=== PATIENT | male | born 1995 | race Caucasian/White ===

== ENCOUNTER 2022-01-19 04:14 | Emergency (ER) | payer MEDICARE, OTHER, SELFPAY ==
[2022-01-19] VITALS (8 sets, daily range): BP systolic 119–157; BP diastolic 50–91; PULSE 54–84; RESP 16–17; TEMP 36.8; O2SAT 94–98; BMI 26.6
--- NOTE | 2022-01-19 04:23 | CT_ITS ---
PROCEDURE INFORMATION: Exam: CT Abdomen And Pelvis With Contrast Exam date and time: 01/19/2022 4:37 AM Age: 26 years old Clinical indication: Abdominal pain; Localized; Right upper quadrant (ruq); Additional info: Ruq pain TECHNIQUE: Imaging protocol: Computed tomography of the abdomen and pelvis with contrast. Radiation optimization: All CT scans at this facility use at least one of these dose optimization techniques: automated exposure control; mA and/or kV adjustment per patient size (includes targeted exams where dose is matched to clinical indication); or iterative reconstruction. Contrast material: ISOVUE; Contrast volume: 75 ml; Contrast route: IV; COMPARISON: No relevant prior studies available. FINDINGS: Lungs: Calcified granuloma in the right lower lobe. Mediastinal space: Fluid is seen within the distal thoracic esophagus. Liver: Normal. No mass. Gallbladder and bile ducts: Normal. No calcified stones. No ductal dilation. Pancreas: Normal. No ductal dilation. Spleen: Normal. No splenomegaly. Adrenal glands: Normal. No mass. Kidneys and ureters: Normal. No hydronephrosis. Stomach and bowel: Unremarkable. No obstruction. No mucosal thickening. Appendix: No evidence of appendicitis. Intraperitoneal space: Unremarkable. No free air. No significant fluid collection. Vasculature: Unremarkable. No abdominal aortic aneurysm. Lymph nodes: Unremarkable. No enlarged lymph nodes. Urinary bladder: Unremarkable as visualized. Reproductive: Unremarkable as visualized. Bones/joints: Unremarkable. No acute fracture. Soft tissues: Unremarkable. IMPRESSION: No acute findings.
[2022-01-19 04:33] LABS: Basophils # 0.2 K/mm3 (0-0.2); Basophils % 2.2 % (0.1-2.0); Eosinophils # 0.1 K/mm3 (0.0-0.4); Eosinophils % 1.3 % (0.1-12.0); Hemoglobin 16.9 g/dL (14.1-18.0); Lymphocytes # 2.3 K/mm3 (0.7-4.5); Lymphocytes % 24.8 % (10-50); Mean Corpuscular HGB Conc 34.5 g/dL (31.8-35.4); Mean Platelet Volume 7.8 fl (7.4-10.4); Monocytes # 0.6 K/mm3 (0.1-1.0); Monocytes % 6.1 % (1.7-9.3); Neutrophils # 6.2 K/mm3 (1.8-7.8); Neutrophils % 65.6 % (37.0-80.0); Platelet Count 283 K/mm3 (142-424); Red Blood Count 5.63 M/mm3 (4.60-6.20); Red Cell Distribution Width 12.9 % (11.5-17.5); White Blood Count 9.4 K/mm3 (4.8-10.8)
[2022-01-19 04:40] LABS: Alanine Aminotransferase 203 U/L (12-78); Albumin Level 4.6 g/dl (3.5-5.0); Albumin/Globulin Ratio 1.4 (1.1-1.8); Alkaline Phosphatase 116 U/L (38-126); Amylase 92 U/L (30-110); Anion Gap 12.8 mEq/L (5-15); Aspartate Amino Transferase 217 U/L (17-59); Bilirubin,Total 2.2 mg/dl (0.2-1.3); Blood Urea Nitrogen 17 mg/dl (9-20); Carbon Dioxide 33 mmol/L (22.0-30.0); Chloride 98 mmol/L (98-107); Creatinine Clearance Estimated 144 mL/min (50-200); Estimated Glomerular Filt Rate 102 ml/min (>60); GFR (African American) 123 ML/MIN (>60); Globulin 3.4 g/dL (1.3-3.2); Glucose 134 mg/dl (74-100); Lipase 202 U/L (23-300); Potassium 3.8 mmoL/L (3.5-5.1); Sodium 140 mmol/L (136-145)
[2022-01-19 04:45] LABS: C-Reactive Protein 6.6 mg/L (0-4)
[2022-01-19 04:58] LABS: Procalcitonin 0.076 ng/mL (0.0-2.0)
--- NOTE | 2022-01-19 04:59 | PC.NURSE ---
rounded on pt. pt's pain relieved by meds per MAR. pt still unable to give urine sample @ this time
[2022-01-19 05:08] LABS: Erythrocyte Sedimentation Rate 13 mm/hr (0-15)
[2022-01-19 05:58] LABS: Microscopic, Urine URINE MICROSCOPIC (MICROSCOPIC)
--- NOTE | 2022-01-19 05:58 | PC.NURSE ---
pt updated that we are waiting on ct scan results
[2022-01-19 05:59] LABS: Appearance,Urine CLEAR (Clear); Blood, Urine Negative (Negative); Color,Urine AMBER (Yellow); Glucose,Urine (UA) Negative (Negative); Ketones,Urine Negative (Negative); Leukocyte Esterase,Urine Negative (Negative); Nitrate,Urine Negative (Negative); Protein,Urine Negative (Negative); Specific Gravity, Urine <= 1.005 (1.005-1.030)
[2022-01-19 06:01] LABS: Bilirubin,Urine 1+ (Negative)
[2022-01-19 06:16] LABS: Bacteria,Urine Trace /lpf
--- NOTE | 2022-01-19 06:45 | PC.NURSE ---
at updating pt on POC
--- NOTE | 2022-01-19 06:53 | US_ITS ---
FINAL REPORT CLINICAL HISTORY: abd pain FINDINGS: Ultrasound images of the right upper quadrant were obtained. The liver parenchyma is normal in echogenicity. The gallbladder is well visualized and the wall appears normal. There sludge and debris in the neck of the gallbladder. The common duct is normal. Limited images of the right kidney are unremarkable. IMPRESSION: Sludge and debris in the neck of the gallbladder. Reviewed, Interpreted and Dictated by Keshawn Palmer MD Transcribed by Rodney Ogden Authenticated and [facility]
--- NOTE | 2022-01-19 07:05 | PC.NURSE ---
received report from Walter. RN
--- NOTE | 2022-01-19 07:19 | PC.NURSE ---
updated pt and family on plan of care
--- NOTE | 2022-01-19 07:45 | PC.NURSE ---
pt to ultrasound
--- NOTE | 2022-01-19 08:10 | PC.NURSE ---
pt back from radiology
--- NOTE | 2022-01-19 08:24 | PC.NURSE ---
nader rounded on pt to assess for pain and nausea. pt reports both. MD notified and medication orders placed.
--- NOTE | 2022-01-19 08:25 | PC.NURSE ---
verbal d/c instructions given to this nurse by to go to the office at d/c to see PA for follow up testing
--- NOTE | 2022-01-19 08:29 | PC.NURSE ---
pt ambulatory at d/c
--- NOTE | 2022-01-19 08:32 | HMH.EDNVD ---
ED Disposition Clinical Impression: Abdominal pain Qualifiers: Abdominal location: right upper quadrant Qualified Code(s): R10.11 - Right upper quadrant pain Disposition: Home, Self-Care Condition on Discharge: Good Instructions: DI for Acute Abdominal Pain Additional Instructions: see pcp this am Referrals: Domi Griffin PA [Primary Care Provider] - - Critical Care Critical Care Time: No Attestation: On 01/19/22, the high probability of a clinically significant, sudden or life threatening deterioration of the following system(s) required my full and direct attention, intervention and personal management. The time I documented below is in addition to time spent performing reported procedures but includes the following listed in this critical care notation. Medical Decision Making - Medical Records Medical records reviewed: Yes: I reviewed the patient's medical records. - Wood Inquiry Pt receiving controlled substance: No Vital Signs: 01/19/22 04:15 01/19/22 05:31 01/19/22 06:01 Temperature 98.3 F Temperature Source Oral Pulse Rate 65 55 L Pulse Rate [Right] 84 Respiratory Rate 16 Blood Pressure 139/50 L 124/59 L Blood Pressure [Right Arm] 157/83 H Blood Pressure Mean 80 Blood Pressure Mean [Right Arm] 107 02 Sat by Pulse Oximetry 96 95 95 Oxygen Delivery Method Room Air 01/19/22 06:30 01/19/22 07:01 01/19/22 07:31 Temperature Temperature Source Pulse Rate 69 70 54 L Pulse Rate [Right] Respiratory Rate Blood Pressure 131/90 119/91 H 125/83 Blood Pressure [Right Arm] Blood Pressure Mean 98 100 98 Blood Pressure Mean [Right Arm] 02 Sat by Pulse Oximetry 94 L 96 96 Oxygen Delivery Method 01/19/22 08:25 Temperature Temperature Source Pulse Rate 66 Pulse Rate [Right] Respiratory Rate 16 Blood Pressure 142/88 H Blood Pressure [Right Arm] Blood Pressure Mean 106 Blood Pressure Mean [Right Arm] 02 Sat by Pulse Oximetry 97 Oxygen Delivery Method Room Air - Lab Data Lab results reviewed: Yes: I reviewed the patient's lab results. Lab Results 01/19/22 04:24: WBC 9.4, RBC 5.63, Hgb 16.9, Hct 49.0, MCV 87.0, MCH 30.0, MCHC 34.5, RDW 12.9, Plt Count 283, MPV 7.8, Neut % (Auto) 65.6, Lymph % (Auto) 24.8, [place] % (Auto) 6.1, Eos % (Auto) 1.3, Baso % (Auto) 2.2 H, Neut # (Auto) 6.2, Lymph # (Auto) 2.3, [place] # (Auto) 0.6, Eos # (Auto) 0.1, Baso # (Auto) 0.2, ESR 13 01/19/22 04:24: Sodium 140, Potassium 3.8, Chloride 98, Carbon Dioxide 33 H, Anion Gap 12.8, BUN 17, Creatinine 0.90, Estimated Creat Clear 144, Estimated GFR 102, Est GFR ( Amer) 123, Glucose 134 H, Calcium 10.0, Total Bilirubin 2.2 H, AST 217 H, ALT 203 H, Alkaline Phosphatase 116, C-Reactive Protein 6.6 H, Total Protein 8.0, Albumin 4.6, Globulin 3.4 H, Albumin/Globulin Ratio 1.4, Amylase 92, Lipase 202, Procalcitonin 0.076 01/19/22 05:45: Urine Color Diana, Urine Appearance Clear, Urine pH 6.0, Ur Specific [place] <= 1.005, Urine Protein Negative, Urine Glucose (UA) Negative, Urine Ketones Negative, Urine Blood Negative, Urine Nitrate Negative, Urine Bilirubin 1+ A, Urine Urobilinogen 4.0, Ur Leukocyte Esterase Negative, Urine RBC None, Urine WBC None, Ur Squamous Epith Cells None, Urine Bacteria Trace Result diagrams: 01/19/22 04:24 01/19/22 04:24 Orders (Tests/Meds): ED MEDICATIONS Discontinued Medications Generic Name Dose Route Start Last Admin Trade Name Kavitha PRN Reason Stop Dose Admin Sodium Chloride 1,000 mls @ 999 mls/hr 01/19/22 04:30 01/19/22 04:25 Sod Chlor 0.9% 1000ml Bag IV 01/19/22 05:30 999 mls/hr .Q1H1M JAYE Administration Sodium Chloride 1,000 mls @ 999 mls/hr 01/19/22 07:00 01/19/22 06:48 Sod Chlor 0.9% 1000ml Bag IV 01/19/22 08:00 999 mls/hr .Q1H1M JAYE Administration Iopamidol 75 ml 01/19/22 04:47 01/19/22 04:48 Iopamidol-370 (76%);100ml Bottle IV 01/19/22 04:48 75 ml ONCE ONE Administration Ketorolac Trometha
[2022-01-27 22:36] LABS: Hep A Ab, IgM NEGATIVE; Hepatitis B Core Antibody IgM NEGATIVE; Hepatitis B Surface Antigen NEGATIVE; Hepatitis C Antibody <0.1
== END 2022-01-19 08:32 | disposition home or self-care (01) ==
PROVIDERS: Emergency Provider Emergency Medicine; PCP Physician Assistant
DX: R10.11 Right upper quadrant pain (principal); R11.2 Nausea with vomiting, unspecified
CPT/HCPCS: 74177; 76705; 80053; 80074; 81001; 82150; 83690; 84145; 85025; 85651; 86140; 96361; 96374; 96375; 96376; 99285; J2405; Q9967

== ENCOUNTER → 2022-02-10 10:38 | Outpatient (CLI) | payer MEDICARE, OTHER, SELFPAY ==
--- NOTE | 2022-02-10 10:45 | NM_ITS ---
FINAL REPORT CLINICAL HISTORY: gallbladder sludge, ruq pain 11:00AM 7.68MCI TC CHOLETEC G.B. DID NOT SHOW, IMAGED OUT FOR 2 HOURS FINDINGS: Sequential anterior projection images of the abdomen were obtained after the intravenous injection of 7.68 mCi technetium 99m Choletec. There is normal uptake of radiotracer by the liver. The bile ducts and bowel are visualized by 10 minutes. The gallbladder was not visualized up to 2 hours. IMPRESSION: Nonvisualization of the gallbladder up to 2 hours. Cholecystitis is not excluded. Reviewed, Interpreted and Dictated by Willian Stone III, MD Transcribed by Ana Rosa Stahl Authenticated and [facility][1]
== END ==
PROVIDERS: PCP Physician Assistant; Visit Provider Physician Assistant
DX: R10.11 Right upper quadrant pain (principal); K82.8 Other specified diseases of gallbladder
CPT/HCPCS: 78226; A9537

== ENCOUNTER → 2022-03-25 15:06 | Outpatient (CLI) | payer MEDICARE, OTHER, SELFPAY ==
[2022-03-25 15:57] LABS: Basophils # 0.2 K/mm3 (0-0.2); Basophils % 2.2 % (0.1-2.0); Eosinophils # 0.2 K/mm3 (0.0-0.4); Eosinophils % 1.9 % (0.1-12.0); Hematocrit 47.8 % (42.0-52.0); Lymphocytes # 2.9 K/mm3 (0.7-4.5); Lymphocytes % 32.6 % (10-50); Mean Corpuscular HGB Conc 35.6 g/dL (31.8-35.4); Mean Corpuscular Hemoglobin 29.9 pg (27.0-31.2); Mean Corpuscular Volume 84.1 fl (80-94); Mean Platelet Volume 8.2 fl (7.4-10.4); Monocytes # 0.4 K/mm3 (0.1-1.0); Monocytes % 4.5 % (1.7-9.3); Neutrophils # 5.3 K/mm3 (1.8-7.8); Neutrophils % 58.8 % (37.0-80.0); Platelet Count 290 K/mm3 (142-424); Red Blood Count 5.69 M/mm3 (4.60-6.20); Red Cell Distribution Width 12.9 % (11.5-17.5); White Blood Count 8.9 K/mm3 (4.8-10.8)
[2022-03-25 16:02] LABS: Chloride 102 mmol/L (98-107); Potassium 3.8 mmoL/L (3.5-5.1); Sodium 144 mmol/L (136-145)
[2022-03-25 16:05] LABS: Alanine Aminotransferase 51 U/L (12-78); Albumin Level 4.9 g/dl (3.5-5.0); Albumin/Globulin Ratio 1.6 (1.1-1.8); Alkaline Phosphatase 106 U/L (38-126); Anion Gap 17.8 mEq/L (5-15); Aspartate Amino Transferase 41 U/L (17-59); Bilirubin,Total 0.9 mg/dl (0.2-1.3); Blood Urea Nitrogen 10 mg/dl (9-20); Calcium 9.4 mg/dl (8.4-10.2); Carbon Dioxide 28 mmol/L (22.0-30.0); Estimated Glomerular Filt Rate 102 ml/min (>60); GFR (African American) 123 ML/MIN (>60); Globulin 3.1 g/dL (1.3-3.2); Glucose 130 mg/dl (74-100)
== END ==
PROVIDERS: PCP Physician Assistant; Visit Provider Surgery
DX: Z01.812 Encounter for preprocedural laboratory examination (principal); Z20.822 Contact with and (suspected) exposure to COVID-19; K82.8 Other specified diseases of gallbladder
CPT/HCPCS: 36415; 80053; 85025; C9803; U0003; U0005

== ENCOUNTER 2022-03-27 06:05 | Day surgery (SDC) | payer MEDICARE, OTHER, SELFPAY ==
[2022-03-27] VITALS (12 sets, daily range): BP systolic 125–156; BP diastolic 57–99; PULSE 81–98; RESP 14–22; TEMP 36.3–43; O2SAT 91–100
--- NOTE | 2022-03-27 | FL_ITS ---
FINAL REPORT TECHNIQUE: Fluoroscopy was provided for evaluation of the gallbladder. CLINICAL HISTORY: fluoro case OR for gallbladder FINDINGS: Fluoroscopy Time: 42nd Images Submitted: 1 IMPRESSION: Fluoroscopy provided for evaluation of the gallbladder. Reviewed, Interpreted and Dictated by Keshawn Palmer MD Transcribed by Leonie Xie Authenticated and [facility]
--- NOTE | 2022-03-27 07:08 | P.PN_ITS ---
[facility] Medical History GERD (gastroesophageal reflux disease) Male circumcision Surgical History (Updated 03/27/22 @ 06:24 by Weston Woods RN) History of circumcision Family History (Updated 03/27/22 @ 06:22 by Weston Woods RN) Other No significant family history Social History (Updated 03/27/22 @ 06:22 by Weston Woods RN) Smoking Status: Never smoker alcohol intake: never substance use type: denies use current occupational status: unemployed Travel in the last 8 weeks: None [facility] Anesthesia Checklist Patient Identification Patient Identification: Arm Band and Verbal (Name & ) Structural Data Admitted From: Home Planned Operative Procedure/s: Olman. thaddeus Consent for Planned Operative Procedure(s) Verified: Yes NPO Status Verified Time NPO: 00:00 Additional verifications Anesthesia Reactions: No Hx Blood Transfusions: No Blood Transfusion Reaction: No Airway Assessment C-Spine Mobility Assessed: Yes TMJ Mobility Assessed: Yes Dentition: Good Dentition Neurological Assessment Level of Consciousness: Awake Hx Seizures: No Numbness or tingling in extremities: No Anesthesia Plan Anesthesia Risk discussed: Yes Anesthesia Plan: Verified ASA Class: I Anesthesia Type: General
--- NOTE | 2022-03-27 09:53 | EXP.OP.NOTE ---
Date of procedure: 03/27/22 Pre-op Diagnosis:: Gallbladder disease Post-op Diagnosis:: Symptomatic gallstones Procedure performed:: Laparoscopic cholecystectomy with intraoperative cholangiogram Surgeon:: Willian Santos MD LOBSTERMAN:: Rohan Jarvis Anesthesia: GETA Estimated blood loss (mL): 20 Clinical Note:: Patient is a 26-year-old male referred by Domi Griffin for gallbladder. Patient was seen in the emergency department on 01/19/2022 with right-sided abdominal pain. Evaluation in the emergency department revealed AST of 217, ALT 203, bilirubin of 2.2. Alkaline phosphatase and amylase and lipase were normal. He underwent CT scan which revealed normal gallbladder with no acute process. Ultrasound at that time revealed sludge and debris. He was managed as an outpatient. He did undergo HIDA scan on 02/10/2022 which revealed nonvisualization of the gallbladder after 2 hours. Patient was seen and examined as a consultation. Options were discussed with him. Plan was made to recheck liver function test and plan for laparoscopic cholecystectomy with possible intraoperative cholangiogram. His liver function tests did normalize. Operative findings:: Patient had a contracted thickened gallbladder with fatty infiltration around the gallbladder. Anatomy was difficult to discern initially. There appeared to be sludge and small granular gallstones. Operative note:: Patient was taken to the operating room. He was given preoperative intravenous antibiotics. In the operating room he was placed in a supine position. General anesthesia was induced via endotracheal tube. Abdomen was prepped and draped in the standard surgical fashion. Subumbilical incision was made and while performing abdominal wall lift Veress needle was inserted. CO2 pneumoperitoneum was achieved to 15 mmHg. 11 mm optical trocar was inserted at the umbilicus. He was positioned in reverse Trendelenburg left side down. A couple of 5 mm trochars were inserted in the right upper abdomen. 10 mm trocar was inserted in the epigastrium. Liver was elevated. Gallbladder was identified. It was retracted anteriorly and superiorly over the dome of the liver. The gallbladder was somewhat thickened and contracted. Delineation of the anatomy was somewhat difficult initially. The cystic artery was clearly initially identified. Prolonged dissection was carried out and due to the contracted nature of the gallbladder it was difficult to discern the cystic duct initially. Dissection was carried out and there was some unavoidable leakage of thick sludge with granular gallstones. Initially this was felt to be possibly within the neck of the gallbladder at the cystic duct. Therefore plan was made to proceed with cholangiogram through this defect. Through a 1 to 2 mm incision in the right subcostal area cholangiocatheter introducer was inserted. Cholangiocatheter was manipulated into the defect and secured with Hemoclip. Fluoroscopy was used to perform intraoperative cholangiogram. However, there was nonvisualization of the duct and the gallbladder filled with contrast. Therefore patient was repositioned. Cholangiocatheter was removed as the Hemoclip was removed. Further dissection was carried out that this was actually in the body of the gallbladder near the neck of the gallbladder. Further dissection was carried out isolating identifying the cystic duct. It was clipped. Small ductotomy was made. Cholangiocatheter was reinserted. Intraoperative cholangiogram revealed some minor extravasation of contrast from the cholangiocatheter insertion site. However the contrast did fill the duct. There was question of distal stone but the duodenum did ultimately fill. Therefore patient was repositioned. Cholangiocatheter was removed. Cystic duct was multiply clipped and sharply divided. Cystic artery was carefully coagulated with RATNA ultrasonic harmonic rosalba. Gallbladder was dissected free from the liver in a r
--- NOTE | 2022-03-27 10:04 | EXP.ANES.I ---
[facility] Anesthesia Record Part I Anesthesia Record I Intake, IV Amount: 800 Estimated blood loss (mL): 20 Urine output (mL): 0 Blood Pressure: 143/93 SaO2: 100 Pulse Rate: 95 Respiratory Rate: 22 Temperature: 97.3 F Patient is:: Drowsy Stable to PACU at:: 10:04
--- NOTE | 2022-03-27 15:17 | P.PNANES_ITS ---
[facility] Anesthesia Record Part II Anesthesia Record Part II Discharge Time: 10:34 Destination: Surgical Day Care (OP Surgery) PACU nurse assessment reviewed?: Yes Patient Condition:: Good Anesthesia Complications:: None Swallowing reflex intact?: Yes Cyanosis?: No Blood Pressure: 138/70 Pulse Rate: 91 Temperature: 97.6 F Mental Status: Alert & Oriented Pain level:: 3 Nausea and/or vomitting:: None Intake, IV Amount: 0
== END 2022-03-27 11:10 | disposition home or self-care (01) ==
PROVIDERS: PCP Physician Assistant; Visit Provider Surgery
DX: K80.10 Calculus of gallbladder with chronic cholecystitis without obstruction (principal); Z79.899 Other long term (current) drug therapy
CPT/HCPCS: 47563; 96374; 76000; 88304; 96375; J2405

== ENCOUNTER 2023-09-05 18:15 | Outpatient (CLI) | payer MEDICARE, OTHER, SELFPAY ==
[2023-09-05 18:22] LABS: Basophils % 0.3 % (0.1-2.0); Eosinophils # 0.1 K/mm3 (0.0-0.4); Eosinophils % 2.8 % (0.1-12.0); Hematocrit 41.3 % (42.0-52.0); Hemoglobin 16.1 g/dL (14.1-18.0); Lymphocytes % 43.8 % (10-50); Mean Corpuscular HGB Conc 38.9 g/dL (31.8-35.4); Mean Corpuscular Hemoglobin 34.2 pg (27.0-31.2); Mean Corpuscular Volume 87.9 fl (80-94); Mean Platelet Volume 8.9 fl (7.4-10.4); Monocytes # 0.4 K/mm3 (0.1-1.0); Monocytes % 9.5 % (1.7-9.3); Neutrophils % 43.6 % (37.0-80.0); Platelet Count 203 K/mm3 (142-424); Red Cell Distribution Width 12.9 % (11.5-17.5); White Blood Count 4.6 K/mm3 (4.8-10.8)
[2023-09-05 18:36] LABS: Alanine Aminotransferase 63 U/L (12-78); Albumin Level 4.5 g/dl (3.5-5.0); Albumin/Globulin Ratio 1.7 (1.1-1.8); Alkaline Phosphatase 87 U/L (38-126); Anion Gap 13.4 mEq/L (5-15); Aspartate Amino Transferase 41 U/L (17-59); Bilirubin,Total 0.9 mg/dl (0.2-1.3); Blood Urea Nitrogen 9 mg/dl (9-20); Carbon Dioxide 29 mmol/L (22.0-30.0); Chloride 102 mmol/L (98-107); Chol/HDL Ratio 5.3 (1-3.5); Cholesterol 176 mg/dl (140-200); Estimated Glomerular Filt Rate 116 ml/min (>60); GFR (African American) 140 ML/MIN (>60); Globulin 2.7 g/dL (1.3-3.2); Glucose 114 mg/dl (74-100); HDL Cholesterol 33 mg/dl (40-60); Potassium 3.4 mmoL/L (3.5-5.1); Sodium 141 mmol/L (136-145); Total Protein,Serum 7.2 g/dl (6.3-8.2); Triglycerides 149 mg/dl (30-150); VLDL Cholesterol 30 mg/dL (0-40)
[2023-09-05 18:48] LABS: Direct LDL Cholesterol 101.64 mg/dL (100-129)
[2023-09-06 05:48] LABS: Hemoglobin A1C 5.4 % (4.0-6.0)
[2023-09-06 10:11] LABS: Thyroid Stimulating Hormone 2.49 uIU/mL (0.465-4.68)
[2023-09-06 10:30] LABS: Vitamin B12 654 pg/mL (239-931)
== END 2023-09-05 23:59 ==
LOC: LAB.DROPOF 18:15
PROVIDERS: PCP Family Medicine; Visit Provider Family Medicine
DX: I10 Essential (primary) hypertension (principal); R73.09 Other abnormal glucose; R53.83 Other fatigue; D75.89 Other specified diseases of blood and blood-forming organs
CPT/HCPCS: 80053; 80061; 82607; 83036; 84443; 85025

== ENCOUNTER 2023-09-24 14:28 | Outpatient (CLI) | payer MEDICARE, OTHER, SELFPAY ==
--- NOTE | 2023-09-24 14:28 | CA_ITS ---
APPROVED REPORT EXAM: Comprehensive 2D, Doppler, and color-flow Echocardiogram Director Of Search Engine Marketing: Linda Olivares CRT Ht: 5 ft 9 in Wt: 207lbs BSA: 2.10 BP: 176/102 mmHg Indications: Bradycardia, abn ekg, rbbb 2D Dimensions LA Volume 41.60 mL LA Volume Index 19.81 mL/m2 (M/F) 16-34 M-Mode Dimensions RVDd 3.39 cm (0.9-2.6) LA Diam 4.25 cm (1.9-4.0) LVDd 4.25 cm (3.5-5.7) LVDs 2.39 cm (3.5-5.7) IVSd 1.86 cm (0.6-1.1) PWd 0.68 cm (0.6-1.1) EF (Teich) 75.20% FS 43.80% EDV (Teich) 80.80 mL TAPSE 3.09 (<1.7) ESV (Teich) 20.00 mL LV Diastology E Decel Time 270 (160-240 msec) E/A Ratio 1.28 MED A' 10.60 cm/s LAT A' 11.50 cm/s Aortic Valve MIGUEL Index 1.37 cm2/m2 AoV Peak Bernardo. 187.0 (50-130 cm/s) AO Peak GR. 14.00 mmHg AO Mean GR. 6.70 (<5 mmHg) AO VTI 31.1 (18-25 cm) MIGUEL (VTI) 2.95 (2.5-4.5 cm2) Mitral Valve MV A Velocity 75.0 (40-130 cm/s) E/A Ratio 1.28 Pulmonary Valve PV Peak Velocity 89.0 (50-150 cm/s) Tricuspid Valve TR P. Velocity 245.00 cm/s RAP Estimate 10.00 mmHg RVSP 34.10 mmHg Left Ventricle The left ventricle is normal size. The left ventricular systolic function is normal. The left ventricular ejection fraction is within the normal range. There is normal left ventricular wall thickness. There is normal LV segmental wall motion. The left ventricular diastolic function is normal. LVEF is 55%. Right Ventricle The right ventricle is normal size. The right ventricular systolic function is normal. Atria The left atrium size is normal. The right atrium size is normal. The interatrial septum is not well-visualized. Aortic Valve The aortic valve opens well. There is no aortic valvular stenosis. No aortic regurgitation is present. Mitral Valve The mitral valve is normal in structure. No evidence of mitral valve stenosis. There is no mitral valve regurgitation noted. Tricuspid Valve The tricuspid valve leaflets are thin and pliable. Trace tricuspid regurgitation. There is insufficient TR jet to estimate RVSP. Pulmonic Valve The pulmonary valve is normal in structure. Trace pulmonic regurgitation. Great Vessels The aortic root is normal in size. The ascending aorta is normal in size. The IVC is not well-visualized. Pericardium There is no pericardial effusion. Other Information Study Quality: Adequate Conclusion Normal biventricular systolic function. No significant valvular stenosis or regurgitation. Electronically signed by : Alexandra Byrnes MD 09/25/2023 00:32:32
== END 2023-09-24 23:59 ==
LOC: RT 14:28
PROVIDERS: PCP Family Medicine; Visit Provider Family Medicine
DX: R94.31 Abnormal electrocardiogram [ECG] [EKG] (principal); I10 Essential (primary) hypertension
CPT/HCPCS: 93306